=== PATIENT | male | born 1980 | race Caucasian/White ===

== ENCOUNTER 2021-12-21 08:02 | Day surgery (SDC) | payer OTHER, SELFPAY ==
[2021-12-21] VITALS (15 sets, daily range): BP systolic 103–139; BP diastolic 75–93; PULSE 71–98; RESP 16–18; TEMP 36.1–36.8; O2SAT 93–99; BMI 30.7
[2021-12-21] MEDS: LACTATED RINGERS 1000 ML 1,000 ML 100 ML IV (08:28)
[2021-12-21] MEDS: SODIUM CHLORIDE 0.9 % (FLUSH) 10 ML SYRINGE IVF (08:28)
[2021-12-21] MEDS: fentaNYL 100 MCG/2 ML inj IVP (08:51)
[2021-12-21] MEDS: MIDAZOLAM HCL 1 MG/ML inj IVP (08:51)
--- NOTE | 2021-12-21 09:01 | SUR.PREOP ---
TIME?OUT:?0851 PT/RN/MDA?VERIFICATION?OF?SURGICAL?SITE,?PROCEDURE,?AND?CONSENT OBTAINED?PRIOR?TO?INVASIVE?PROCEDURE.
--- NOTE | 2021-12-21 09:05 | W.PM.NB ---
Nerve Block Nerve Block Time Seen by Provider: 08:50 Date Seen: 12/21/21 Type of block requested by surgeon for post-operative analgesia: supraclavicular Side: left Time out performed: Yes Verification of patient name: Yes Verification of date of : Yes Site marking: site marked Name of person performing procedure: alpesh Continuous monitoring Was continuous monitoring of O2 sat, B/P, residential monitor, recorded every 15 minutes?: Yes Procedure Checklist: sterile prep and needles Ultrasound guided. Images saved: Yes Medications given in 5ml increments after negative aspiration: Ropivicaine %: 0.5 mL: 25 Needle gauge: 22 Decadron (mg): 10 Precedex (mcg): 25 Patient tolerated procedure well: Yes Block Charges Block Charge (with Pro Fee): Brachial Plexus Use of Ultrasound Machine for Block: Yes- US Guidance/pain block
[2021-12-21] MEDS: CEFAZOLIN 2 GM in 0.9 % SODIUM CHLORIDE Mini-bag 100 ML IVPB (09:55)
[2021-12-21] MEDS: SODIUM CHLORIDE IRRIG SOLUTION 3,000 ML, EPINEPHrine 1 MG IRRIGATION (11:19)
--- NOTE | 2021-12-21 11:50 | PM.ORPRC ---
Procedure Note Date of procedure: 12/21/21 Procedure: PREOPERATIVE DIAGNOSES: 1. Left shoulder AC sprain-grade 5 (including CC ligament disruption) POSTOPERATIVE DIAGNOSES: 1. Left shoulder AC sprain-grade 5 (including CC ligament disruption) NAME OF OPERATION: 1. Left shoulder arthroscopic AC/CC ligament reconstruction with Arthrex dog bone technique and anterior tibialis 8.0mm diameter allograft. 2. Right shoulder arthroscopic limited synovectomy/debridement SURGEON: Etienne Contreras MD FRAME TABLE OPERATOR HELPER: Nik Choudhury PA-C; Juventino BEEBE. Of note, a skilled district administrative assistant was critical for this case to aide in patient positioning, suture manipulation, arm positioning, instrument positioning, tunnel drilling, camera manipulation, skill to perform the above, and closure. ANESTHESIA: General plus preoperative supraclavicular block. EBL: 50ml IMPLANTS: Arthrex dog bone button (x2); anterior tibialis 8.0mm diameter allograft. COMPLICATIONS: None evident INDICATIONS: The patient is a pleasant, 41 year old male who has experienced left shoulder pain that has been increasing in recent time. Stems from an injury in the last 2 weeks. Shoulder. Severe. Obvious deformity with the distal clavicle prominent. We discussed the pros and cons of nonoperative and operative considerations. They elected for surgery, which was indicated for stabilization of the distal clavicle. Given the significance of the deformity, allograft was chosen for augmentation of biology. FINDINGS: Exam under anesthesia revealed substantially elevated distal clavicle, but it was reducible to neutral position. PROCEDURE: Following a thorough discussion of risks, benefits, and alternatives, consent was obtained and the left shoulder was marked. The patient was brought to the operating room and placed supine on the operating table. Induction of anesthesia was completed after preoperative supraclavicular block was administered in preop holding. Appropriate time out was performed identifying proper patient, site, and procedure. 2 g IV Ancef was administered within 1 hour of incision preoperatively. The left upper extremity was prepped and draped in the appropriate sterile fashion using ChloraPrep prep. This was after the patient was positioned in the beach chair with their head in neutral alignment and all bony prominences well padded. The shoulder was insufflated with 20mL of normal saline via an 18g spinal needle from a posterior approach. An 11 blade skin incision allowed a blunt trochar to be inserted and diagnostic arthroscopy to be performed with the findings as noted above. An ASL portal was established with an outside in technique. This allowed the probe to be inserted and confirm the diagnostic arthroscopic findings. The rotator cuff was found to be intact including the subscapularis. The biceps tendon was intact in appropriate position. The glenohumeral joint showed healthy chondral surfaces. The labrum was intact with no significant tearing. There is a small recess in the anterior labrum consistent with a Dalton complex. No loose bodies were identified within the pouch or the gutters. The shaver and [place] cautery device were then inserted and allowed debridement of the rotator cuff interval tissue including the synovium and capsular tissue. This allowed visualization of the coracoid near its tip. From here, we tracked the coracoid back towards its base debriding the synovial tissue. Great caution was taken to avoid any neurologic structures in close proximity. To help with the debridement, a 2nd anterior 0 inferior portal was established. This allowed us to visualize from posterior approach with 70 degree scope and performed both tissue retraction and debridement through the 2 anterior portals. The CC ligament Arthrex guide was placed against the base of the coracoid. Incision was made over the distal portion of the clavicle sparing the AC joint capsule itself. Sharp incision through skin and Bovie cautery through subcutaneous tissue allowed identification of the crossing fascia. This was divided and superior lastly elevated from the distal clavicle. Again we spared the AC joint capsule itself. After exposing the clavicle approximately 32-35 mm from the AC joint itself, the Arthrex guide was reassessed. Again the subcoracoid portion was placed against the base, the superior clavicle portion was placed in the middle the bone. The cannulated drill bit was then passed through 4 cortices and confirmed to have excellent location at the base of the coracoid in the center of the bone. The central pin was removed from the cannulated drill, and a 5 fiber stick suture was passed and grasped and pulled out the anterior cannula. A loop was tie which allowed shuttling of sutures for the dog bone itself. This was after dog bone was placed on the midportion of the sutures. These tails were brought up through the 4 cortices hole that was drilled, and dog bone rested comfortably against the base of the coracoid. We then turned our attention to passing of the allograft. Initially, switching stick was passed from the posterior aspect of the clavicle along the medial border of the coracoid. It was then cannulated, and a fiber stick suture passed through this in grasped out the anterior cannula. The gracilis allograft had been on tension throughout the case to take any creep out of it. At this time, we passed the sutures through this shuttling stitch and then did the same thing via an anteromedial passage. The other into the sutures were passed through this, an allograft was confirmed to be around the coracoid and up and around the clavicle appropriately. After reducing the clavicle manually, the other dog bone button was attached to the sutures, and these were initially tied and confirmed to have proper reduction. Multiple throws were placed in the fiber tape sutures and good holding of the dog bone was visualized. The tails of the allograft were then tied and held together with # 0 Vicryl passed in [id number] fashion multiple times. The remaining tails of the allograft were cut and discarded. Again the distal clavicle was checked and found to be smooth against the acromion consistent with an anatomic location. Instruments removed, excess fluid was drained from the shoulder, and irrigation of the clavicle incision was performed. Closure was then performed with # 0 Vicryl for the deep fascia. 2-0 Vicryl for the subcutaneous and 3-0 Monocryl for subcuticular closure. Dressings were applied, sling was applied, and the patient was awoken from anesthesia and transferred the PACU in stable condition. A skilled district administrative assistant was critical for this case to aid in patient positioning, limb positioning, skill to manipulate arthroscopic instruments and camera, suture management, patient safety, and closure. PLAN: 1. Elbow, forearm, wrist and digit range of motion as tolerated. 2. Encouraged ice. 3. Percocet for pain as needed. 4. Sling at all times except for ROM and showering and pendulums. 5. Follow up with PA in 1-2 weeks for wound check.
--- NOTE | 2021-12-21 12:09 | W.ANESCHARGE ---
Anesthesia Charges Start Date/Time Anesthesia Start Date: 12/21/21 Anesthesia Start Time: 09:34 Stop Date/Time Anesthesia Stop Date: 12/21/21 Anesthesia Stop Time: 12:10 Summary Emergency: No
[2021-12-21] MEDS: IBUPROFEN 200 MG TABLET 400 MG PO (13:00)
== END 2021-12-21 13:45 | disposition home or self-care (01) ==
PROVIDERS: Visit Provider Orthopaedic Surgery Sports Medicine
PROC: (CPT 23550; principal; 2021-12-21 09:30)
DX: S43.52XA Sprain of left acromioclavicular joint, initial encounter (principal)
CPT/HCPCS: 23550; 29822; 01630; 64415; 76942; A9270; C1713; C1762; J0171; J0330; J0690; J1100; J2250; J2405; J2704; J2795; J3010; J7120; L3670